=== PATIENT | female | born 1945 | race Caucasian/White ===

== ENCOUNTER 2020-10-10 20:50 | Inpatient (IN) | payer OTHER, MEDICARE ==
[~2020-10-10 20:50] MED LIST: Iopamidol-370 76% 500 ML 1 ML ONE
[2020-10-10] MEDS ORDERED: Fentanyl 100 MCG/2 ML VIAL ONE (20:57)
[2020-10-10] MEDS ORDERED: Ondansetron PF 4 MG/2 ML Vial ONE (21:21)
[2020-10-10 21:27] LABS: #Eosinphils 0.1 thou/uL (0.0-0.7); #Monocytes 0.6 thou/uL (0.11-0.59); #Neutrophils 15.8 thou/uL (1.40-6.50); %Basophils 0.1 % (0.0-1.0); %Eosinophils 0.4 % (0.0-10.0); %Lymphocytes 5.6 % (21.0-51.0); %Monocytes 3.7 % (0.0-10.0); %Neutrophils 90.2 % (42.0-75.0); Hemoglobin 11.9 g/dL (12.0-16.0); Mean Corpuscular HGB CONC 33.5 g/dL (32.0-36.0); Mean Corpuscular Hemoglobin 32.4 pg (27.0-31.0); Mean Corpuscular Volume 96.5 fL (78.0-98.0); Mean Platelet Volume 6.4 fL (7.4-10.4); Platelet Count 224 thou/uL (130-400); RBC Distribution Width 11.7 % (11.5-14.5); Red Blood Cell (RBC) Count 3.69 mill/uL (4.20-5.40); White Blood Cell (WBC) Count 17.5 thou/uL (4.8-10.8)
[2020-10-10] MEDS ORDERED: Boostrix 0.5 ML (Tdap) VIAL ONE (21:29)
[2020-10-10 21:39] LABS: Prothrombin Time 13.4 sec (12.0-14.7)
[2020-10-10 21:40] LABS: PTT 34.3 sec (22.9-36.1)
[2020-10-10 21:41] LABS: ALT (SGPT) 19 U/L (8-55); AST (SGOT) 35 U/L (5-34); Albumin 4.1 g/dL (3.4-4.8); Alkaline Phosphatase 67 U/L (40-110); Anion Gap 16 mmol/L (10-20); BUN (Urea Nitrogen) 20 mg/dL (9.8-20.1); Bilirubin, Total 0.4 mg/dL (0.2-1.2); CK (CPK) 298 U/L (29-168); Calc. Creatinine Clearance 0 mL/min (70-130); Calcium 8.8 mg/dL (7.8-10.44); Carbon Dioxide 20 mmol/L (23-31); Chloride 102 mmol/L (98-107); Globulin 2.4 g/dL (2.4-3.5); Glucose 110 mg/dL (83-110); Potassium 3.9 mmol/L (3.5-5.1); Protein, Total 6.5 g/dL (5.8-8.1); Sodium 134 mmol/L (136-145)
[2020-10-10] MEDS ORDERED: Cyclobenzaprine 10 MG TAB ONE (22:39)
[2020-10-10] MEDS ORDERED: Acetaminophen 500 MG TAB ONE (22:39)
[2020-10-10] MEDS ORDERED: Ondansetron PF 4 MG/2 ML Vial IVP PRN (23:12)
[2020-10-10] MEDS ORDERED: hydrALAZINE 20 MG/ML VIAL SLOW IVP PRN (23:12)
[2020-10-10] MEDS ORDERED: Dextrose 5% in Water 1,000 ML IV PRN (23:12)
[2020-10-10] MEDS ORDERED: Dextrose 50% Abboject 50 ML SYRINGE SLOW IVP PRN (23:12)
[2020-10-10] MEDS ORDERED: Rib Fracture Protocol PO PRN (23:15)
[2020-10-10] MEDS ORDERED: Melatonin 3 MG TAB PO PRN (23:23)
[2020-10-10] MEDS ORDERED: Sodium Chloride 0.9% 1,000 ML IV SCH (23:30)
[2020-10-11] MEDS ORDERED: Morphine 2 MG/ML VIAL SLOW IVP PRN (01:53)
[2020-10-11] MEDS ORDERED: Morphine 4 MG/ML VIAL SLOW IVP PRN (01:54)
[2020-10-11] MEDS ORDERED: Cyclobenzaprine 10 MG TAB PO PRN (02:00)
[2020-10-11] MEDS: Ketorolac Tromethamine 30 MG/ML VIAL IVP SCH ×4 (02:43→20:33)
[2020-10-11 05:56] LABS: #Eosinphils 0.2 thou/uL (0.0-0.7); #Lymphocytes 0.6 thou/uL (1.20-3.40); #Monocytes 0.4 thou/uL (0.11-0.59); #Neutrophils 11.7 thou/uL (1.40-6.50); %Basophils 0.3 % (0.0-1.0); %Eosinophils 1.3 % (0.0-10.0); %Lymphocytes 4.9 % (21.0-51.0); %Monocytes 3.3 % (0.0-10.0); %Neutrophils 90.3 % (42.0-75.0); Hemoglobin 9.8 g/dL (12.0-16.0); Mean Corpuscular HGB CONC 32.9 g/dL (32.0-36.0); Mean Corpuscular Hemoglobin 31.6 pg (27.0-31.0); Mean Corpuscular Volume 96.1 fL (78.0-98.0); Mean Platelet Volume 6.2 fL (7.4-10.4); Platelet Count 195 thou/uL (130-400); RBC Distribution Width 11.7 % (11.5-14.5)
[2020-10-11] MEDS ORDERED: traMADol HCl 50 MG TAB PO SCH (06:00)
[2020-10-11 06:19] LABS: Phosphorus 3.5 mg/dL (2.3-4.7)
[2020-10-11 06:22] LABS: Anion Gap 11 mmol/L (10-20); BUN (Urea Nitrogen) 20 mg/dL (9.8-20.1); Calc. Creatinine Clearance 0 mL/min (70-130); Calcium 8.2 mg/dL (7.8-10.44); Carbon Dioxide 26 mmol/L (23-31); Chloride 103 mmol/L (98-107); Glucose 121 mg/dL (83-110); Magnesium 1.9 mg/dL (1.6-2.6); Potassium 5.1 mmol/L (3.5-5.1); Sodium 135 mmol/L (136-145)
[2020-10-11] MEDS ORDERED: Morphine 4 MG/ML VIAL ONE (08:22)
[2020-10-11] MEDS ORDERED: Gabapentin 100 MG CAP PO SCH (09:00)
[2020-10-11] MEDS: Acetaminophen 500 MG TAB PO SCH ×4 (09:02→23:55)
[2020-10-11] MEDS: Famotidine 20 MG TAB PO SCH (09:03)
[2020-10-11] MEDS: Senokot S 8.6-50 MG TAB PO SCH ×2 (09:03→20:34)
[2020-10-11] MEDS: Polyethylene Glycol 3350 17 GM Packet PO SCH (09:20)
[2020-10-11] MEDS ORDERED: traZODone HCl 50 MG TAB PO PRN (09:55)
[2020-10-11 12:18] VITALS: BMI 25.2
[2020-10-11] MEDS: traMADol HCl 50 MG TAB PO SCH ×3 (12:46→23:56)
[2020-10-11] MEDS: Gabapentin 100 MG CAP PO SCH ×2 (14:57→20:34)
[2020-10-12] MEDS: Ketorolac Tromethamine 30 MG/ML VIAL IVP SCH ×2 (02:03→09:55)
[2020-10-12] MEDS: Acetaminophen 500 MG TAB PO SCH ×2 (05:33→11:18)
[2020-10-12] MEDS: traMADol HCl 50 MG TAB PO SCH ×3 (05:33→17:10)
[2020-10-12] MEDS: Senokot S 8.6-50 MG TAB PO SCH ×2 (09:53→20:54)
[2020-10-12] MEDS: Polyethylene Glycol 3350 17 GM Packet PO SCH (09:54)
[2020-10-12] MEDS: Famotidine 20 MG TAB PO SCH (09:56)
[2020-10-12] MEDS: Gabapentin 100 MG CAP PO SCH ×3 (10:19→20:53)
[2020-10-12] MEDS: Enoxaparin Sodium 30 MG/0.3 ML SYRINGE SC SCH (10:25)
[2020-10-12] MEDS: Ibuprofen 200 MG TAB PO SCH ×2 (15:18→20:53)
[2020-10-12] MEDS: HYDROcodone/Acetaminophen 7.5/325 mg Tablet PO PRN (17:10)
[2020-10-12] MEDS: Acetaminophen 325 MG TAB PO SCH (17:43)
[2020-10-12] MEDS ORDERED: Melatonin 3 MG TAB PO SCH (21:00)
[2020-10-13] MEDS: traMADol HCl 50 MG TAB PO SCH ×3 (01:07→12:07)
[2020-10-13] MEDS: Acetaminophen 325 MG TAB PO SCH ×3 (01:07→12:08)
[2020-10-13] MEDS: Enoxaparin Sodium 30 MG/0.3 ML SYRINGE SC SCH (09:05)
[2020-10-13] MEDS: Gabapentin 100 MG CAP PO SCH ×2 (09:06→15:06)
[2020-10-13] MEDS: Senokot S 8.6-50 MG TAB PO SCH (09:07)
[2020-10-13] MEDS: Ibuprofen 200 MG TAB PO SCH ×2 (09:07→15:07)
[2020-10-13] MEDS: Polyethylene Glycol 3350 17 GM Packet PO SCH (09:08)
[2020-10-13] MEDS: HYDROcodone/Acetaminophen 7.5/325 mg Tablet PO PRN (11:12)
[2020-10-13 15:55] VITALS: BP 133/68; TEMP 97.5
== END 2020-10-13 16:51 | DRG 964 ==
LOC: ERS 20:50 → SURG B 23:04
PROVIDERS: ADMIT Surgery; ATTEND Surgery
DX: S22.43XA Multiple fractures of ribs, bilateral, initial encounter for closed fracture (principal); S22.20XA Unspecified fracture of sternum, initial encounter for closed fracture; S32.502A Unspecified fracture of left pubis, initial encounter for closed fracture; S27.0XXA Traumatic pneumothorax, initial encounter; S32.501A Unspecified fracture of right pubis, initial encounter for closed fracture; S32.10XA Unspecified fracture of sacrum, initial encounter for closed fracture; S80.12XA Contusion of left lower leg, initial encounter; S80.11XA Contusion of right lower leg, initial encounter; S80.812A Abrasion, left lower leg, initial encounter; S80.811A Abrasion, right lower leg, initial encounter; R91.1 Solitary pulmonary nodule; V49.40XA Driver injured in collision with unspecified motor vehicles in traffic accident, initial encounter; Z88.5 Allergy status to narcotic agent; Z79.899 Other long term (current) drug therapy
CPT/HCPCS: 36415; 70450; 71045; 71260; 72125; 72170; 74177; 80048; 80053; 82550; 83605; 83735; 84100; 84484; 85025; 85610; 85730; 90715; 93005; 94640; G0390; J0690; J1650; J1885; J2270; J2405; J3010; J7620; Q9967